=== PATIENT | female | born 1945 | race Two or more races ===

== ENCOUNTER 2017-01-26 15:57 | Inpatient (IN) | payer MEDICARE, OTHER ==
[~2017-01-26] VITALS: Ht 172.7 cm; Wt 84.3 kg
[2017-01-26 16:07] VITALS: BP 109/54; PULSE 66; RESP 16; O2SAT 96
--- NOTE | 2017-01-26 18:05 | ED.REPORT ---
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 Patient states that she bent over and heard a "pop" in her chest and have been experiencing progressively worse pain since. She is currently unable to ambulate secondary to pain. Associated symptoms also include SOB and chest pain. Patient currently takes Oxycodone Q4 for post-op pain. She denies any recent fever or chills. Nursing Notes Stated Complaint: PAIN/10 DAYS POST LUNG SURGERY Chief Complaint: Female Abdominal Pain Nursing Notes Reviewed: Yes Allergies: Coded Allergies: honey (Verified Allergy, Severe, Anaphylaxis, 01/26/17) TAPE (Verified Allergy, Intermediate, RASH, 01/26/17) ampicillin (Verified Allergy, Intermediate, RASH, 01/26/17) valacyclovir (Verified Allergy, Intermediate, RASH, 01/26/17) amitriptyline (Verified Adverse Reaction, Intermediate, OVERSEDATION, 01/26) Uncoded Allergies: BEE STING (Allergy, Severe, Anaphylaxis, 01/26/17) BEE STINGS (Allergy, Severe, 01/26/17) NEOPRENE (Allergy, Severe, 01/26/17) PEANUTS (Allergy, Severe, Anaphylaxis, 01/26/17) TREE NUTS (Allergy, Severe, ANAPHYLAXIS, 01/26/17) Scheduled Alendronate/Vitamin D3 (Alendronate/Vitamin D3) 1 Each Tablet 1 TAB PO WEEKLY SUNDAYS Docusate Sodium (Colace) 100 Mg Capsule 100 MG PO BID Famotidine (Famotidine) 20 Mg Tablet 20 MG PO BIDWM Metoprolol Tartrate (Metoprolol Tartrate) 25 Mg Tablet 12.5 MG PO TID Sennosides (Senna) 8.6 Mg Tablet 8.6 MG PO BID Scheduled PRN Acetaminophen (Acetaminophen) 500 Mg Tablet 500 MG PO Q3H PRN PRN For Pain Loperamide (Loperamide) 2 Mg Tablet 2 MG PO Q4H PRN PRN For Diarrhea or Loose Stool Ondansetron (Ondansetron) 4 Mg Tablet 4 MG PO Q8H PRN PRN For Nausea/Vomiting Oxycodone (Roxicodone) 5 Mg Tablet 5 MG PO Q3H PRN PRN For Pain General Time Seen by MD: 18:05 Chief Complaint Abdominal pain Hx Obtained From: Patient Arrived By: Walk-in Sudden in Onset?: No Onset Occurred: Yesterday Symptom Duration: Since onset Location: : Abdomen Quality: Painful Radiation: : Does not radiate Severity: Current: Moderate Severity: Maximum: Moderate Associated with: Reports: Abdominal pain Pertinent Negative: Pt denies other symptoms Recent Healthcare: Recent doctor visit, Recent hospitalization Past Medical History Past Medical History Right lung cancer s/p partial pneumectomy Past Surgical History Partial pneumectomy Denies: Cholecystectomy Review of Systems Full Review of Systems Constitutional: Denies: Chills, Fever Respiratory: Reports: Shortness of breath Cardiovascular: Reports: Chest pain GI: Reports: Abdominal pain (RUQ) Complete sys rev & neg: except as marked. Physical Exam Vital Signs Vital Signs Date Time Temp Pulse Resp B/P Pulse Ox O2 Delivery O2 Flow Rate FiO2 01/26/17 21:58 72 18 123/63 97 Room Air 01/26/17 20:15 62 20 131/75 96 Room Air 01/26/17 16:07 36.8 66 16 109/54 96 Room Air Initial VS: Reviewed Neck: Supple, Non-tender, Full range of motion Extremities: Vascular intact, Neuro intact, No swelling, No tenderness Skin: Warm, Dry, No cyanosis Neurologic: Alert, Oriented, Nonfocal Psychiatric: Mood/affect normal, Behavior normal, Normal thought content General/Constitutional: Awake, Alert, No acute distress, Well appearing, Not toxic appearing Head / Eyes: Atraumatic, Normocephalic, PERRL ENT: Atraumatic, Airway patent, Mucous membranes moist Respiratory / Chest: Atraumatic, Breath sounds NL, Breath sounds = bilat, No respiratory distress Cardiovascular: Heart rate NL, Regular rhythm, Heart sounds NL Abdomen: Atraumatic, Soft, No guarding, No rebound Tenderness/Guarding/Rebound: Positive: Tender RUQ... (Moderate) CHEST: Well-healing scars s/p partial pneumectomy. No signs of infection including no erythema, no warmth and no pustule drainage. Interpretation & Diagnostics Lab Results Interpretation Result Diagram: 01/26/17 1808 01/26/17 1808 Test 01/26/17 18:08 01/26/17 21:27 01/26/17 22:50 White Blood Count 6.7th/mm3 (3.8-10.1) Red Blood Count 3.91mil/mm3 (3.90-5.20) Hemoglobin 11.5g/dL (12.0-15.6) Hematocrit 35.7% (35.0-46.0) Mean Corpuscular Volume 91.3fL (81-100) Mean Corpuscular Hemoglobin 29.4pg (27.0-35.0) Mean Corpuscular Hemoglobin Concent 32.2% (32.0-37.0) Red Cell Distribution Width 13.1% (12.3-15.4) Platelet Count 345bil/L (150-400) Neutrophils (%) (Auto) 61.0% (40-74) Lymphocytes (%) (Auto) 27.6% (14-46) Monocytes (%) (Auto) 7.0% (4-12) Eosinophils (%) (Auto) 2.8% (0-5) Basophils (%) (Auto) 0.6% (0-3) Hold Purple Top Tube Received (Received) Prothrombin Time 9.7sec (8.1-12.5) Prothromb Time International Ratio 0.91ratio Hold Blue Top Tube Received (Received) Sodium Level 137mEq/L (134-144) Potassium Level 4.4mEq/L (3.5-5.2) Chloride Level 100mEq/L (97-108) Carbon Dioxide Level 25mmol/L (18-29) Blood Urea Nitrogen 13mg/dL (8-27) Creatinine 0.86mg/dL (0.57-1.00) Estimat Glomerular Filtration Rate 93mL/min (>59) Glucose Level 94mg/dL (60-99) Calcium Level 9.0mg/dL (8.5-10.1) Magnesium Level 2.2mg/dL (1.6-2.6) Total Bilirubin 0.2mg/dL (0.0-1.2) Aspartate Amino Transf (AST/SGOT) 13U/L (0-50) Alanine Aminotransferase (ALT/SGPT) 14U/L (0-32) Alkaline Phosphatase 78U/L (25-165) Total Protein 6.8g/dL (6.4-8.4) Albumin 3.7g/dL (3.4-5.0) Lipase 92U/L (13-60) Hold [place]field Top Tube Received (Received) Hold Botello Top Tube Received (Received) Urine Color Straw (YELLOW) Urine Appearance Clear (CLEAR,HAZY) Urine pH 5.0 (5.0-8.0) Urine Specific Green[place] 1.005 (1.003-1.035) Urine Protein Negativemg/dL (NEG,TRACE) Urine Glucose (UA) Negativemg/dL (NEGATIVE) Urine Ketones Negativemg/dL (NEGATIVE) Urine Occult Blood Negative (NEGATIVE) Urine Nitrite Negative (NEGATIVE) Urine Bilirubin Negative (NEGATIVE) Urine Urobilinogen Normalmg/dL (NORMAL) Urine Leukocyte Esterase Small (NEGATIVE) Urine RBC 0-2/hpf (0-2) Urine WBC 0-5/hpf (0-5) Urine Epithelial Cells Few/hpf (NONE-MOD) Urine Crystals None seen (NONE SEEN) Urine Bacteria Few/hpf (NONE-FEW) Urine Hyaline Casts None/lpf (NONE) Urine Granular Casts None seen (NONE SEEN) Urine Waxy Casts None seen (NONE SEEN) Urine Red Blood Cell Casts None seen (NONE SEEN) Urine White Blood Cell Casts None seen (NONE SEEN) Urine Mucus None seen (None Seen) Urine Trichomonas None seen (NONE SEEN) Urine Yeast None (NONE SEEN) Urinalysis Comment None Urine Culture Reflexed Indicated Lactic Acid Level 0.4mmol/L (0.4-2.0) Procalcitonin 0.06ng/mL (0.00-0.08) Pulse Oximetry Interpretation Pulse Oximetry Interpretation: Pulse Ox - 96% Pulse Oximetry: On room air ECG Interpretation ECG Interpretation: Sinus Rhythm Rate 61 bpm Left ventricular hypertrophy No prior for comparison Time: 18:48 Interpreted by: ED physician Rhythm Strip Interpretation : Time: 19:23 Rhythm Strip Interpretation: Interpreted by me, Rate (61), Normal sinus rhythm X-Ray Chest Interpretation Chest Xray Interpretation: IMPRESSION: 1. Left retrocardiac radiopacity suspicious for atelectasis, aspiration, or infection. 2. Tenting of the right hemidiaphragm which may be postoperative in nature. No prior comparisons are available to determine the acuity of this finding. 3. No acute intra-abdominal findings. Dictated by: Aury Jordan M.D. on 01/26/2017 at 18:59 Interpretation / Wet Read by: Interpret - Radiologist X-Ray Abdominal Interpretation IMPRESSION: 1. Left retrocardiac radiopacity suspicious for atelectasis, aspiration, or infection. 2. Tenting of the right hemidiaphragm which may be postoperative in nature. No prior comparisons are available to determine the acuity of this finding. 3. No acute intra-abdominal findings. Dictated by: Aury Jordan M.D. on 01/26/2017 at 18:59 Interpretation / Wet Read by: Interpret - Radiologist CT Chest Interpretation IMPRESSION: 1. No acute pulmonary embolus. 2. Loculated appearing, small low density right pleural effusion. 3. Focal left basilar consolidation suspicious for aspiration/infection. Short interval followup is recommended to ensure resolution of this finding and exclude underlying pulmonary pathology. Dictated by: Aury Jordan M.D. on 01/26/2017 at 21:58 Study type: CT pulm angiogram Interpretation / Wet Read by: Interpret - Radiologist CT Abd / Pelvis Interpretation IMPRESSION: 1. No acute intra-abdominal findings. Normal appendix. 2. Small low density right pleural effusion. 3. Focal left basilar consolidation. Differential considerations include atelectasis, aspiration, infection. Short interval followup is recommended to ensure resolution. Dictated by: Aury Jordan M.D. on 01/26/2017 at 22:02 Study type: Abdominal CT IV contrast, Abdom CT oral contrast Interpretation / Wet Read by: Interpret - Radiologist US Focused Biliary IMPRESSION: 1. Limited study. 2. Cholelithiasis and gallbladder wall which is the upper limits of normal. Of note, there is no pericholecystic fluid or sonographic Beltran's sign. These findings are equivocal for acute cholecystitis. Please correlate clinically. Dictated by: Aury Jordan M.D. on 01/26/2017 at 19:51 Exam Interpreted by: Radiologist Re-Eval/Medical Decision Time of Eval: 20:36 Patient Status: Condition improved Re-Evaluation/Progress Note: Pain has improved upon recheck. She is informed of her current results. Time of Eval: 23:40 Re-Evaluation/Progress Note: Pt is rechecked. All of her questions about the intended treatment plan are addressed. The patient understands and agrees with the plan to admit. Consultation #1: Referral / Consult Name: Loyda Gupta Consulted With: Hospitalist Call Returned at: 23:30 [employer] Boards Stripper Etcher: Will see patient, Agrees with eval, Agrees with plan, Accepts admit Consultation #2: Consulted With: Surgeon Call Returned at: 23:21 [employer] Stripper Etcher: Agrees with eval, Agrees with plan Note: Dr. Rock Linda - Discussed patient condition. Agrees with intended treament plan Counseled Regarding: Diagnosis, Lab results, Need for admission Discharge & Departure Primary Impression: Left lower lobe pneumonia Pneumonia type: due to unspecified organism Qualified Code: J18.1 - Lobar pneumonia, unspecified organism Additional Impressions: Cholelithiasis Pleural effusion Abdominal pain Disposition: Home Discharge Condition All VS Reviewed: Yes Condition: Stable Referrals: PAULA SAN (PCP) Scribe Attestation Portions of this note were transcribed by Jocelin Griffiths. I, Dr. Osborne, personally performed the history, physical exam and medical decision-making; I reviewed and confirmed the accuracy of the information in the transcribed note. Signed by: Jocelin Griffiths, 01/26/17. copies to: PAULA SAN Todd P DO Jan 26, 2017 18:05 JOCELIN GRIFFITHS Jan 26, 2017 18:16
[2017-01-26] MEDS ORDERED: 0.9% Sodium Chloride 1,000 ML IV ONE (18:21)
[2017-01-26] MEDS ORDERED: Ondansetron 2 mg/mL 2 mL Inj IVPUSH PRN (18:25)
[2017-01-26 18:31] LABS: BASOPHILS % (AUTO) 0.6 % (0-3); EOSINOPHILS % (AUTO) 2.8 % (0-5); Mean Corpuscular Hemoglobin 29.4 pg (27.0-35.0); Mean Corpuscular Volume 91.3 fL (81-100); Platelet Count 345 bil/L (150-400)
[2017-01-26 18:37] LABS: INR 0.91 ratio
[2017-01-26 18:42] LABS: Magnesium 2.2 mg/dL (1.6-2.6)
[2017-01-26] MEDS: HYDROmorphone 0.5 mg/0.5 mL iSecure Syringe IVPUSH PRN ×3 (18:46→21:47)
--- NOTE | 2017-01-26 19:04 | DRSVH ---
PROCEDURE: X-RAY ACUTE ABDOMINAL SERIES ([id number]) INDICATIONS: abdominal and chest pain TECHNIQUE: One view chest and two views of the abdomen were acquired. COMPARISON: None. FINDINGS: Surgical changes and devices: None. Chest: There is a focal retrocardiac radiopacity at the left lung base. There is tenting of the right hemidiaphragm which may be secondary to volume loss from recent lobectomy (per history). Abdomen: Bowel gas pattern is normal. No suspicious calcifications. Visualized solid organ contour s appear normal. Bones: No suspicious bony lesions. IMPRESSION: 1. Left retrocardiac radiopacity suspicious for atelectasis, aspiration, or infection. 2. Tenting of the right hemidiaphragm which may be postoperative in nature. No prior comparisons are available to determine the acuity of this finding. 3. No acute intra-abdominal findings. Dictated by: Aury Jordan M.D. on 01/26/2017 at 18:59 Approved by: Aury Jordan M.D. on 01/26/2017 at 19:03
--- NOTE | 2017-01-26 19:54 | DRSVH ---
PROCEDURE: US ABDOMEN, LIMITED ([id number]) INDICATIONS: ruq pain TECHNIQUE: Real-time focused scanning was performed of the abdomen, with image documentation. COMPARISON: None. FINDINGS: Liver measures 13 cm in length and demonstrates increased echotexture. The gallbladder wall measures up to 3.6 mm in diameter. No pericholecystic fluid. Sludge and stones are present centrally . No sonographic Beltran's sign. The common bile duct measures 4.8 mm in diameter. It no intrahepatic biliary ductal dilatation. The p ancreas is nonvisualized. IMPRESSION: 1. Limited study. 2. Cholelithiasis and gallbladder wall which is the upper limits of normal. Of note, there is no jazmyn cholecystic fluid or sonographic Beltran's sign. These findings are equivocal for acute cholecystitis. Please correlate clinically. Dictated by: Aury Jordan M.D. on 01/26/2017 at 19:51 Approved by: Aury Jordan M.D. on 01/26/2017 at 19:53
[2017-01-26 20:15] VITALS: BP 131/75; PULSE 62; RESP 20; O2SAT 96
[2017-01-26 21:48] LABS: APPEARANCE,URINE CLEAR (CLEAR,HAZY); COLOR,URINE STRAW (YELLOW); OCCULT BLOOD,URINE NEGATIVE (NEGATIVE); UROBILINOGEN,URINE NORMAL (NORMAL)
[2017-01-26 21:58] VITALS: BP 123/63; PULSE 72; RESP 18; O2SAT 97
--- NOTE | 2017-01-26 22:04 | DRSVH ---
PROCEDURE: CT ANGIO CHEST PULMONARY EMBOLISM ([id number]) INDICATIONS: severe post op chest and abdominal pain TECHNIQUE: After the administration of intravenous contrast, 2 mm thick sections acquired from the pulmonary api jr to the posterior costophrenic angles. 3-dimensional maximum intensity projection (MIP) coronal a nd sagittal reformats were then acquired through the thorax. For radiation dose reduction, the follo wing was used: automated exposure control, adjustment of mA and/or kV according to patient size. COMPARISON: None. FINDINGS: Image quality: Excellent. Pulmonary arteries: Pulmonary arteries are normal in size, and demonstrate no intraluminal filling d efects to suggest central pulmonary embolism. Lungs and pleura: There is a small, low-density, loculated appearing right pleural effusion. Focal co nsolidation is present at the medial left lung base. Atelectasis is present at the right lung base. Mediastinum: Heart size is enlarged, without pericardial effusion. No mediastinal or hilar adenopat hy. Thoracic aorta is normal in caliber and enhancement. Esophagus is normal in caliber, without hi atal hernia. Bones and chest wall: No suspicious bony lesions. Ribs and thoracic spine appear intact throughout. A low density nodule and a punctate calcification are present within the right thyroid lobe. The lef t thyroid lobe is unremarkable. No axillary or supraclavicular adenopathy. Abdomen: Visualized upper abdominal solid organs appear normal in the early arterial phase of enhanc ement. IMPRESSION: 1. No acute pulmonary embolus. 2. Loculated appearing, small low density right pleural effusion. 3. Focal left basilar consolidation suspicious for aspiration/infection. Short interval followup is r ecommended to ensure resolution of this finding and exclude underlying pulmonary pathology. Dictated by: Aury Jordan M.D. on 01/26/2017 at 21:58 Approved by: Aury Jordan M.D. on 01/26/2017 at 22:02
--- NOTE | 2017-01-26 22:08 | DRSVH ---
PROCEDURE: CT ABDOMEN AND PELVIS WITH CONTRAST ([id number]) INDICATIONS: severe post op chest and abdominal pain TECHNIQUE: After the administration of intravenous contrast, 5 mm thick sections acquired from the diaphragm to the symphysis. 5 mm coronal and sagittal reformats were acquired. For radiation dose reduction, the following was used: automated exposure control, adjustment of mA and/or kV according to patient siz e. COMPARISON: None. FINDINGS: Image quality: Excellent. ABDOMEN: Lung bases: There is a low density right pleural effusion. Focal consolidation is present at the left lung base. Solid organs: Liver and spleen are normal in size and enhancement. Multiple punctate gallstones are present within the gallbladder fundus. No gallbladder wall thickening or pericholecystic fluid. Bilia ry system is non dilated. Pancreas enhances normally. No adrenal nodules. Kidneys demonstrate norm al size and enhancement, without hydronephrosis. Peritoneum and bowel: Bowel loops demonstrate normal wall thickness and caliber. The appendix is th in walled. No free fluid or air. Nodes and vessels: No retroperitoneal or mesenteric adenopathy by size criteria. Aorta and inferior vena cava are normal in size. There are scattered atheromatous calcifications throughout the aorta and iliac arteries bilaterally. Miscellaneous: No ventral hernias. PELVIS: Genitourinary: Bladder wall thickness is normal. Miscellaneous: No inguinal adenopathy. There is a small right fat containing inguinal hernia. Bones: No suspicious bony lesions. No vertebral body compression fractures. IMPRESSION: 1. No acute intra-abdominal findings. Normal appendix. 2. Small low density right pleural effusion. 3. Focal left basilar consolidation. Differential considerations include atelectasis, aspiration, inf ection. Short interval followup is recommended to ensure resolution. Dictated by: Aury Jordan M.D. on 01/26/2017 at 22:02 Approved by: Aury Jordan M.D. on 01/26/2017 at 22:06
[2017-01-26] MEDS ORDERED: Cefepime Inj 2,000 MG in Dextrose 5% Minibag Plus 100 ML IV ONE (22:20)
[2017-01-26] MEDS ORDERED: FAMO20TA4 PO (23:04)
[2017-01-26] MEDS ORDERED: METO25TA6 PO (23:04)
[2017-01-26] MEDS ORDERED: ONDA-53 PO (23:04)
[2017-01-26] MEDS ORDERED: ALEN70TA46 PO (23:04)
[2017-01-26] MEDS ORDERED: OXYC-474 PO (23:04)
[2017-01-26] MEDS ORDERED: ACET-171 PO (23:05)
[2017-01-26] MEDS ORDERED: LOPE2TAB32 PO (23:05)
[2017-01-26] MEDS ORDERED: SENN-133 PO (23:05)
[2017-01-26] MEDS ORDERED: DOCU-41 PO (23:05)
[2017-01-26] MEDS ORDERED: Alum-Mag Hydrox-Simeth 30 mL Suspension PO PRN (23:50)
[2017-01-26] MEDS ORDERED: Polyethylene Glycol (PEG) 17 Gm Powder PO PRN (23:50)
[2017-01-26 23:57] VITALS: BP 125/54; PULSE 76; RESP 18; O2SAT 97
[2017-01-27] VITALS (14 sets, daily range): BP systolic 92–132; BP diastolic 58–82; PULSE 16–121; RESP 16–22; O2SAT 88–96
[2017-01-27] MEDS ORDERED: HYDROmorphone 0.5 mg/0.5 mL iSecure Syringe IVPUSH ONE
[2017-01-27] MEDS ORDERED: Albuterol 2.5 mg/3 mL Inhalation Solution NEB ONE (01:05)
--- NOTE | 2017-01-27 01:40 | PCM.HPMED ---
Subjective Date of Service Jan 27, 2017 Primary Provider: Admitting Physician: Loyda Gupta DO Primary Care Physician: [facility] Attending Physician: Loyda Gupta DO Admit Status: From the Emergency Department, Remote Telemetry Chief Complaint: Right-sided chest pain History of Present Illness: Ms. Woodard is a pleasant 71-year-old female with a history of lung adenocarcinoma status post right partial pneumonectomy completed at [facility] on 01/16/2017, who presented to [facility] with a 2 day history of acute onset right-sided chest pain with associated shortness of breath and inability to ambulate secondary to pain. She was admitted for evaluation and treatment of suspected healthcare associated pneumonia in the setting of recent hospitalization and pulmonary interventions. - Hospital day one Ms. Woodard is a resident of [place], here in [place] visiting her daughter and to complete her adenocarcinoma treatment plan. She states that her initial workup for lung adenocarcinoma was completed in [place], and due to the involvement of the procedure, she requested that her continued care completed through [facility] in [place], in order to be closer to her family. She states that the procedure went rather well, her surgeon being Dr. Rock Linda of [facility]. Her next follow-up was scheduled to be 2016. She states that since the procedure 01/16/2017, she had been doing very well until 2 days prior to this admission. She had been able to ambulate great distances, until 2 days ago, when her distance significantly decreased to approximately a rooms length. She denies any associated fever, chills, nausea, vomiting; admits to associated shortness of breath with the severe pain, which is located on her right chest wall, with a sensation deep to her incisions. She denies any dysphasia, poor appetite, or acute vision changes. The right- sided pain waxes and wanes without any identifiable triggers, is not associated with movement or position, moderately relieved with home pain medications. Patient reports that the prescribed oxycodone was not alleviating the pain over the recent 24-36 hours. She also notes that she has been utilizing her albuterol more frequently over the recent 2 days, with use increasing to greater than 4 times a day, which is unusual for her. In the ED, T 36.6, pulse 76, respiratory rate 18, blood pressure 125 or 54, 97% room air; initial labs revealed WBC 6.7 with 61% neutrophils, hemoglobin 11.5, hematocrit 35.7, platelets 345; sodium 137, potassium 4.4, creatinine 0.86, lactic acid 0.8 with repeat 0.4, pro calcitonin 0.06, lipase 92, LFTs within range, albumin 3.7; UA revealed negative nitrite, small leukocyte esterase, few bacteria; blood cultures and urine cultures were obtained; initial imaging included x-ray acute abdominal series which revealed left retrocardiac radiopacity suspicious for atelectasis, aspiration, or infection, with tenting of the right hemidiaphragm which was thought to be post operative change, no other acute intra-abdominal findings were noted; abdominal ultrasound was noted to be limited in study with cholelithiasis and gallbladder wall was found to be upper limits of normal without any pericholecystic fluid or sonographic Beltran sign; CTA completed did not reveal any acute pulmonary emboli, there was a loculated appearing small low-density right pleural effusion with focal left basilar consolidation suspicious for aspiration or infection; CT of the abdomen and pelvis with contrast did not reveal any acute intra-abdominal findings with a normal appendix, small low-density right pleural effusion was again noted, in addition to focal left basilar consolidation. Initial therapies included 1 L normal saline, cefepime 2 g, hydromorphone 0.5 mg IV push as needed for pain. Review of Systems: Complete review of systems obtained, pertinent positives and negatives as noted in history of present illness Allergies Coded Allergies: honey (Verified Allergy, Severe, Anaphylaxis, 01/26/17) TAPE (Verified Allergy, Intermediate, RASH, 01/26/17) ampicillin (Verified Allergy, Intermediate, RASH, 01/26/17) valacyclovir (Verified Allergy, Intermediate, RASH, 01/26/17) amitriptyline (Verified Adverse Reaction, Intermediate, OVERSEDATION, 01/26) Uncoded Allergies: BEE STING (Allergy, Severe, Anaphylaxis, 01/26/17) BEE STINGS (Allergy, Severe, 01/26/17) NEOPRENE (Allergy, Severe, 01/26/17) PEANUTS (Allergy, Severe, Anaphylaxis, 01/26/17) TREE NUTS (Allergy, Severe, ANAPHYLAXIS, 01/26/17) Home Medications Obtained from patient documentation, will need to be verified: Calcium 1500 mg daily Magnesium 100 mg daily Biotin 10,000 g daily Vitamin D 5000 international units daily Multivitamin daily Iron 50 mg every other day opposite vitamin K Vitamin K 100 g every other day off of iron X line alendronate 70 mg tabs weekly Albuterol as needed Docusate 1 tab twice daily Famotidine twice daily Sennosides twice daily Metoprolol 12.5 mg thrice daily Oxycodone 5 mg 2 tabs every 4-6 hours as needed for pain PMH Lung cancer status post right partial pneumonectomy of upper lobe Paroxysmal atrial fibrillation noted postoperatively Livedoid vasculopathy Patient reports childhood diseases including [place] measles, mumps 3, rubella, rheumatic fever, scarlet fever, polio, chickenpox Patient also reports carpal monoxide poisoning, venous stasis ulcer of left anterior ankle, vertigo Patient denies any other health conditions Surgical History Right-sided partial pneumonectomy of right upper lobe Tubal ligation First left rib resection secondary to thoracic outlet syndrome Double pneumonia Vaginal hysterectomy with bladder resection secondary to endometriosis Compression fracture of T6 Family History Half brother with lung cancer, thought to be secondary to agent orange exposure during the [place] War Patient denies any other family history of cancer Social History Hx Alcohol Use: Yes (quit alcohol intake 1995) Hx Substance Use: No Hx Tobacco Use: Yes Smoking Status: Former Smoker (from 1957 until 2010) Living Arrangement: with Family (visiting daughter) Additional Information Patient home: [facility] Exam Vital Signs Vital Sign - Last Date Time Temp Pulse Resp B/P Pulse Ox O2 Delivery O2 Flow Rate FiO2 01/26/17 23:57 36.6 76 18 125/54 97 Room Air Intake and Output 01/26/17 01/26/17 01/27/17 Cumulative From/Thru 15:00 23:00 07:00 01/26/17 16:07 - 01/26/17 18:46 Intake Total 999 ml 999 ml Balance 999 ml 999 ml Intake IV Total 999 ml 999 ml Exam General: Alert and oriented 3, well-nourished woman resting supine in bed in no acute distress HEENT: Atraumatic, normocephalic, mucous membranes moist, sclerae anicteric Neck: Full range of motion without any pain Chest: Multiple port sites noted that are well approximated without any discharge, active bleeding, or exudate Cardiac: Regular rate and rhythm at time of examination with soft 1/6 systolic murmur Respiratory: Adequate airflow of bilateral bases and mid sullivan, with faint coarse sounds appreciated left lower lobe Abdomen: Soft, nondistended, nontender Extremities: No edema appreciated MSK: 5 out of 5 strength all 4 extremities at major joints of hip and shoulder Skin: Erythematous lesion noted of left medial malleolus region without active bleeding or exudate; chronic venous stasis changes noted bilateral lower extremities Neuro: Cranial nerves II through XII grossly intact, facial expressions equal and symmetric, speech without slur Psych: Appropriate mood, affect, and responses to questioning; good insight and judgment Lab and Diagnostics Result Diagram: 01/26/17180701/26/171807 Assessment & Plan Ms. Woodard is a pleasant 71-year-old female with a history of lung adenocarcinoma status post right partial pneumonectomy completed at [facility] on 01/16/2017, who presented to [facility] with a 2 day history of acute onset right-sided chest pain with associated shortness of breath and inability to ambulate secondary to pain. She was admitted for evaluation and treatment of suspected healthcare associated pneumonia in the setting of recent hospitalization and pulmonary interventions. - Hospital day one Suspected pneumonia, acute, present on admission, under evaluation - On admit: WBC 6.7; afebrile, PCT 0.06 - Initial imaging of CT, CXR described findings of left retrocardiac radiopacity , focal left basilar consolidation, loculated right pleural effusion - ED antibiotics: Cefepime 2 g - Patient reports allergy to penicillin, but has taken and tolerated cephalosporins in the past - Blood cultures obtained in ED - Repeat PCT in am; add resp viral PCR, strep pneu Ur, Legionella Ur, MRSA swab - Continue to monitor; consideration of healthcare pneumonia secondary to recent hospitalization for pneumonectomy - Incentive spirometer ordered - We will continue with healthcare associated pneumonia with low risk MDR antibiotic regimen at this time: Ertapenem 1 g IV every 24 - Change antibiotics as results from pending laboratory results yield - CXR in am Right-sided chest pain, acute, present on admission, under evaluation - Admit CT abdomen and pelvis with contrast: No acute intra-abdominal findings or etiology of abdominal pain - CTA on admission: No acute pulmonary emboli, but did reveal loculated appearing low-density right pleural effusion - Pain may also be secondary to postoperative healing; time of admission, port sites appeared healing without any sign of active infection - Dilaudid 1 mg IV as needed for pain; convert to effective oral dosing when pain is controlled - Physical therapy evaluation Lung cancer status post right partial pneumonectomy, present on admission, now considered to be chronic, presumed stable - Per reports, pneumonectomy completed at [place] on 01/16/2017 - ED kindly contacted Dr. Rock Linda - Incentive spirometer - Albuterol scheduled 4 times a day while awake at patient's request Paroxysmal atrial fibrillation, chronic, not present on admission, monitor - Patient reports brief instance of atrial fibrillation postoperatively which she reports has resolved - Home medication metoprolol 12.5 mg thrice daily - We will continue beta blockade at this time - Telemetry Livedoid vasculopathy, chronic, presumably managed - Patient states symptoms well-controlled with application of Vaseline or Aquaphor - Okay for patient to apply liberally as needed PRN: Fever, bowel, antiemetic, pain GI: H2B Diet: General DVT: Hepq8 CODE STATUS: Full code Patient status: Due to severity of presenting symptoms, risk of adverse events, and likely course of care, anticipated length of stay exceeds two midnights, patient admitted as inpatient status Pain Evaluation: Adequate Pain Control GI Prophylaxis: H2 hayes VTE Prophylaxis: Sub-Q Heparin (Unfractionated) Resuscitation Status: CPR: Attempt Resuscitation Attending Statement The patient was seen and examined together with house staff on 01/27/2017 and I agree with the history, exam and plan as outlined in the note above. Olimpia Calderon DO Jan 27, 2017 00:07 Loyda Gupta DO Jan 27, 2017 05:48
[2017-01-27] MEDS: Ondansetron 2 mg/mL 2 mL Inj IVPUSH PRN ×3 (01:41→20:02)
[2017-01-27] MEDS: HYDROmorphone 1 mg/mL Inj IVPUSH PRN ×5 (03:28→20:03)
--- NOTE | 2017-01-27 04:48 | NUR ---
NOC Admit Pt arrived on the floor. Alert and oriented. Complains of right lateral rib pain. Dilaudid 1mg PRN and supported with K-pad for pain control. Denies chest pain or sob. Reports of feeling nauseated upon having jelo. Zofran administered PRN. No complains after. Pt's VSS and has been afebrile overnight.
[2017-01-27 05:38] LABS: BASOPHILS % (AUTO) 0.4 % (0-3); EOSINOPHILS % (AUTO) 2.2 % (0-5); MONOCYTES % (AUTO) 6.5 % (4-12); Mean Corpuscular Hemoglobin 29.2 pg (27.0-35.0); NEUTROPHILS % (AUTO) 72.3 % (40-74); Platelet Count 314 bil/L (150-400)
[2017-01-27] MEDS: Ertapenem Inj 1,000 MG in 0.9% Sodium Chloride 50 ML IV SCH (08:32)
[2017-01-27] MEDS: Heparin 5,000 Unit/mL Inj SUBQ SCH ×2 (08:38→16:54)
--- NOTE | 2017-01-27 10:39 | NUR ---
Telemetry: Notified by court monitor of patients HR increased to 110s then increased to 130s and has converted to A Fib/Flutter. Scheduled am Metoprolol administered. notified. HR decreasing to 110s, continues to be AFib. Addendum: 01/27/17 at 1042 by CINDY MELLO RN Patient denied chest pain/pressure, palpitations, SOB, lightheadedness and dizziness. Addendum: 01/27/17 at 1252 by CINDY MELLO RN Notified by court monitor that patient converted back to SR 70s @ 1242.
[2017-01-27] MEDS: Albuterol 2.5 mg/3 mL Inhalation Solution NEB SCH ×3 (11:18→19:53)
--- NOTE | 2017-01-27 11:49 | NUR ---
Evaluation completed. Please go to "Notes" then click on "Assessments and Notes" (bottom left corner of screen). Then select appropriate discipline tab on top of screen.
--- NOTE | 2017-01-27 14:44 | DRSVH ---
PROCEDURE: X-RAY CHEST ONE VIEW, PORTABLE ([id number]) INDICATIONS: SOB TECHNIQUE: One view of the chest was acquired. COMPARISON: [facility], CT, CT ANGIO CHEST PE, 01/26/2017, 21:31. FINDINGS: Surgical changes and devices: None. Lungs and pleura: Right subpulmonic pleural effusion redemonstrated and persistent bibasilar airspace opacities, left greater than right. Mediastinum: Mediastinal contours appear normal. Heart size is normal. Bones and chest wall: No suspicious bony lesions. Overlying soft tissues appear unremarkable. IMPRESSION: 1. Possible loculated right pleural effusion redemonstrated and persistent basilar airspace opacities consistent with atelectasis versus aspiration or pneumonia. Continued radiographic surveillance to r esolution is recommended. Dictated by: Rg SCHMITT Interpreted: Lan Bo MD on 01/27/2017 at 10:53 Approved by: Lan Bo M.D. on 01/27/2017 at 14:42
--- NOTE | 2017-01-27 16:23 | NUR ---
Social Work-initial assessment/ multidisciplinary rounds: Data:See initial assessment. Pt is a 71 y/o female who was admitted on 01/26/17 for pneumonia per H&P. Pt's insurance is [employer] and [employer] [place] of [place] and PCP is Dr. Murray. EMR Reviewed. SW met with pt at bedside, SW role explained. Pt is alert and oriented x3. Pt resides at home alone in [place], but has been residing locally with her daughter in [facility]. Pt normally drives and does not use any DME. Pt states she is currently open with HH services and has no SNF history. Pt has no alf care insurance or VA benefits. Pt has not completed DPOA/ advanced directive, SW provided pt with paperwork. Pt discussed in morning rounds, no concerns around pt's capacity for self care, Pt has cleared pt for home no needs. Pt to remain at pt's daughter home post hospitalization. SW provided pt with discharge planning checklist and encouraged pt to call with any questions,phone number provided. Pt's daughter to provide transport home. SW will continue to follow. Assessment:pt who is independent at baseline. Plan:Pt to discharge home when medically stable via POV. SW will continue to follow. JOSE Arana Addendum: 01/27/17 at 1632 by MILES CARTER Amended: Links added.
--- NOTE | 2017-01-27 17:51 | NUR ---
Nausea: Patient vomited small amount of undigested food after dinner. Had previously medicated patient with Zofran approx one half hour prior to meal. After vomiting, patient states that she feels "better". Will follow.
[2017-01-27] MEDS ORDERED: diphenhydrAMINE 25 mg Capsule PO ONE (21:50)
[2017-01-28] VITALS (8 sets, daily range): BP systolic 102–114; BP diastolic 57–67; PULSE 62–91; RESP 18–22; O2SAT 91–95
[2017-01-28] MEDS: Heparin 5,000 Unit/mL Inj SUBQ SCH ×3 (00:23→16:37)
[2017-01-28] MEDS: Ondansetron 2 mg/mL 2 mL Inj IVPUSH PRN (00:24)
--- NOTE | 2017-01-28 05:16 | NUR ---
NOC activity Pt is alert and oriented. Still having sharp right sided pain. Instruct splinting around the area. PRN oxycodone and dilaudid administered. Denies chest pain. Reports of SOB due to pain. Breathing tx administered by RT PRN. Pt has no further complains. Telemetry monitoring has been running sinus rhythm throughout the night. VSS and afebrile. Continuing care.
[2017-01-28] MEDS: Albuterol 2.5 mg/3 mL Inhalation Solution NEB SCH ×3 (07:14→16:47)
[2017-01-28] MEDS: Ertapenem Inj 1,000 MG in 0.9% Sodium Chloride 50 ML IV SCH (08:13)
--- NOTE | 2017-01-28 10:52 | PCM.CONSUR ---
Subjective History of Present Illness Julissa Woodard is a 71 [id number] with a past medical history of lung adenocarcinoma who is POD 12 from a left upper lobectomy performed by Dr. Rock Linda at [place] in [place] who presented to the [facility] ED with complaint of severe RUQ abdominal pain x2 days. Patient states that she was discharged from [place] after a 4-day hospital stay and her pain was significantly improved after chest tube removal on the day of her discharge. She denies any chest pain , incision pain or shortness breath in the days after discharge. On 01/26/2017 patient states that she was ambulating when she had a sudden onset of RUQ abdominal pain that she describes as a "popping" sensation. She reported associated nausea and a few episodes of vomiting. The pain has since been constant at a severity of 7/10 and is exacerbated with movement, cough and deep breaths. She denies any radiation of the pain but does note tenderness surrounding her incision sites. She denies any fever, chills, chest pain, shortness or breath or cough at this time. Reason for Consultation RUQ abdominal pain, concern for acute cholecystitis Allergy Allergies: Coded Allergies: honey (Verified Allergy, Severe, Anaphylaxis, 01/26/17) TAPE (Verified Allergy, Intermediate, RASH, 01/26/17) ampicillin (Verified Allergy, Intermediate, RASH, 01/26/17) valacyclovir (Verified Allergy, Intermediate, RASH, 01/26/17) amitriptyline (Verified Adverse Reaction, Intermediate, OVERSEDATION, 01/26) Uncoded Allergies: BEE STING (Allergy, Severe, Anaphylaxis, 01/26/17) BEE STINGS (Allergy, Severe, 01/26/17) NEOPRENE (Allergy, Severe, 01/26/17) PEANUTS (Allergy, Severe, Anaphylaxis, 01/26/17) TREE NUTS (Allergy, Severe, ANAPHYLAXIS, 01/26/17) Medications Acetaminophen (Acetaminophen) 500 Mg Tablet 500 MG PO Q3H PRN PRN For Pain ( Reported) Last Taken: 500 MG on 01/26/17 1400 Alendronate/Vitamin D3 (Alendronate/ Vitamin D3) 1 Each Tablet 1 TAB PO WEEKLY (Reported) SUNDAYS Last Taken: 1 TABLET on 01/26/17 0700 Docusate Sodium (Colace) 100 Mg Capsule 100 MG PO BID (Reported) Last Taken: 100 MG on 01/26/17599 Famotidine (Famotidine) 20 Mg Tablet 20 MG PO BIDWM (Reported) Last Taken: 20 MG on 01/26/17599 Loperamide (Loperamide) 2 Mg Tablet 2 MG PO Q4H PRN PRN For Diarrhea or Loose Stool (Reported) Last Taken: 2 MG on Unknown Date & Time Metoprolol Tartrate (Metoprolol Tartrate) 25 Mg Tablet 12.5 MG PO TID (Reported) Last Taken: 12.5 MG on 01/26/17 0600 Ondansetron (Ondansetron) 4 Mg Tablet 4 MG PO Q8H PRN PRN For Nausea/Vomiting (Reported) Last Taken: 4 MG on Unknown Date & Time Oxycodone (Roxicodone) 5 Mg Tablet 5 MG PO Q3H PRN PRN For Pain (Reported) Last Taken: 5 MG on 01/26/17 1400 Sennosides (Senna) 8.6 Mg Tablet 8.6 MG PO BID (Reported) Last Taken: 8.6 MG on 01/26/17 0600 Past Surgical History Surgeries: Yes (Partial Right Upper partial Lobectomy 01/16 ) Patient/Family Past Surgical: Denies:: Anesthesia Reactions Social History Hx Alcohol Use: Yes (quit alcohol intake 1995) Hx Substance Use: No Hx Tobacco Use: Yes PMH Cardiovascular History Cardiovascular History: Positive for:: Irregular Heartbeat (A-fib post op,) Denies:: Congestive Heart Failure Hypertension Respiratory Respiratory History: Denies:: Pulmonary Embolism Neurological History Neurological History: Positive for:: Dizziness (side effect of biopsy per pt ) Denies:: CVA Dementia Headaches Parkinson's Disease Seizures Gastrointestinal History Other GI Pertinent History: Celiac Dse, Lactose intolerance Musculoskeletal History Hx Musculoskeletal Problems?: Yes Musculoskeletal History: Positive for:: Back Injury Joint Replacement Musculoskeletal Trauma (S/P ) Psycho Social History Hx of Psycho/Social Problems?: Yes Psycho Social History: Denies:: Anxiety Bipolar Disorder Hx Depression Other History Other History: Positive for:: Cancer (Lung CA S/P Partial Lobectomy ) Hospitalization (Partial Right Upper partial Lobectomy 01/16 ) Denies:: Thyroid Disease Diabetes: No Social History Hx Alcohol Use: Yes (quit alcohol intake 1995)Hx Substance Use: NoHx Tobacco Use: Yes Smoking Status: Former Smoker (from 1958 until 2010) Living Arrangement: with Family (visiting daughter) Objective Exam Vital Signs & I/O Vital Sign- Last 8 Hours Date Time Temp Pulse Resp B/P Pulse Ox O2 Delivery O2 Flow Rate FiO2 01/28/17 10:33 74 01/28/17 10:02 37.1 62 20 106/60 93 Room Air 01/28/17 07:15 65 22 93 01/28/17 05:09 36.4 91 18 112/67 91 Room Air Intake and Output- Last 8 Hour 01/28/17 Cumulative From/Thru 07:00 01/26/17 16:07 - 01/28/17 06:09 Intake Total 400 ml 3422 ml Output Total 1200 ml 2850 ml Balance -800 ml 572 ml Intake Oral 400 ml 2265 ml IV Total 1157 ml Output Urine Total 1200 ml 2850 ml # Voids 1 # Bowel Movements 0 0 Lab & Micro Results Microbiology 01/26/17 Blood Culture - Preliminary, Resulted NO GROWTH AFTER 24 HOURS 01/27/17 Adenovirus DNA (PCR) - Final, Complete Not Detected 01/27/17 Coronavirus 229E PCR - Final, Complete Not Detected 01/27/17 Coronavirus HKU1 PCR - Final, Complete Not Detected 01/27/17 Coronavirus NL63 PCR - Final, Complete Not Detected 01/27/17 Coronavirus OC43 PCR - Final, Complete Not Detected 01/27/17 Influenza Type A (PCR) - Final, Complete Not Detected 01/27/17 Influenza Type B (PCR) - Final, Complete Not Detected 01/27/17 Human Metapneumovirus (PCR) (JAVON) - Final, Complete Not Detected 01/27/17 Rhinovirus (PCR)(JAVON) - Final, Complete Not Detected 01/27/17 Parainfluenza Virus Type 1 (PCR) - Final, Complete Not Detected 01/27/17 Parainfluenza Virus Type 2 (PCR) - Final, Complete Not Detected 01/27/17 Parainfluenza Virus Type 3 (PCR) - Final, Complete Not Detected 01/27/17 Parainfluenza Virus Type 4 (NAAT) - Final, Complete Not Detected 01/27/17 Respiratory Syncytial Virus (PCR)IN - Final, Complete Not Detected 01/27/17 Chlamydia pneumoniae (PCR) - Final, Complete Not Detected 01/27/17 Mycoplasma pneumoniae DNA Detection - Final, Complete 01/27/17 Streptococcus pneumoniae Ag Screen - Final, Complete Result Diagram: 01/27/17 0505 01/27/17 0505 Review of Systems: Constitutional: Negative, except as otherwise mentioned in the history above. Ophthalmologic: Negative, except as otherwise mentioned in the history above. Cardiovascular: Negative, except as otherwise mentioned in the history above. Respiratory: Negative, except as otherwise mentioned in the history above. Gastrointestinal: Negative, except as otherwise mentioned in the history above. Genitourinary: Negative, except as otherwise mentioned in the history above. Musculoskeletal: Negative, except as otherwise mentioned in the history above. Neurological: Negative, except as otherwise mentioned in the history above. Psychiatric: Negative, except as otherwise mentioned in the history above. Hematologic/Lymphatic: Negative, except as otherwise mentioned in the history above. Allergic/Immunologic: Negative, except as otherwise mentioned in the history above. H&P Surgical Exam Exam General: Alert, Oriented X3, Cooperative, No Acute Distress HEENT: Within normal limits & unremarkable Neck: Within normal limits & unremarkable Respiratory: Clear to Auscultation Cardiac: Regular Rate/Rhythm, No Murmurs/Rubs/Gallops Abdomen: Normal bowel sounds, Soft, Other (three small well-healed incisions to thorax with sutures in place from recent right upper lobectomy, severe tenderenss to light palpation of incisions, warmth surrounding incision sites with minimal erythema, moderate RUQ abdominal tenderness to palpation, + Beltran' s sign, moderate epigastric tenderness to palpation) Breasts: Not Indicated Pelvic: Not Indicated Assessment & Plan Assessment Right sided abdominal pain Problems: (1) Abdominal pain Qualifiers: Abdominal location: right upper quadrant Qualified Code: R10.11 - Right upper quadrant pain Status: Acute ICD Code: R10.9 VTE Prophylaxis: Sub-Q Heparin (Unfractionated) Plan: - Upon examination, the patient exhibits tenderness to light touch at her incision sites with associated warmth and slight erythema. Her pain is likely secondary to a post-op wound infection, given her recent right upper lobectomy on 01/16/2017. - Given a normal white count and no significant exam findings consistent with acute cholecystitis, laparoscopic cholecystectomy is not advised at this time. - Patient had a scheduled appointment to follow up with her cardiothoracic surgeon today at 10am. She is advised to call her surgeon and update him on her pain and establish follow up. - Patient can resume normal diet at this time. Resuscitation Status: CPR: Attempt Resuscitation Attending Statement: If there is a lingering question about cholecystitis, one could obtain a HIDA. Please call with questions Avril Hawkins DO Jan 28, 2017 10:52 Bailey Davidson MD Jan 30, 2017 12:27
[2017-01-28] MEDS ORDERED: oxyCODONE-Acetamin 5-325 mg Tablet PO PRN ×2 (12:10→12:14)
[2017-01-28] MEDS ORDERED: HYDROmorphone 1 mg/mL Inj IVPUSH PRN (13:05)
--- NOTE | 2017-01-28 14:02 | NUR ---
A-fib per teletype adjuster pt may have converted to A-fib. pt is resting in bed currently and is asymptomatic. paged
--- NOTE | 2017-01-28 14:36 | NUR ---
Social Work-readiness for discharge: Data:EMR reviewed. Pt is on day 2 of hospitalization for L pneumonia per H&P. Pt is not medically stable anticipate 1-2 more days. SW followed up with pt and she has all the paperwork for [facility]. order received for resume HH. SW called [facility] back and informed them of pt being open on service. [facility] confirms they have pt for Rn and PT services. [facility] will just need resume HH orders faxed at discharge. PT has cleared pt for home. Pt's daughter to provide transport home. SW will continue to follow. Assessment:Pt who is open with [facility]. Plan:Pt to discharge home with daughter when medically stable via POV. Pt will need resume HH orders at discharge with [facility] for RN and PT. ALEX will continue to follow. JOSE Arana
--- NOTE | 2017-01-28 16:51 | PCM.DC.MED ---
Discharge Summary Date of Service Jan 28, 2017 Dates of Hospitalization Date of Hospital Admission Jan 26, 2017 at 23:56 Date of Discharge: Jan 28, 2017 Providers: Admitting Physician: Loyda Gupta DO [facility] Attending Physician: Gi Guo DO Diagnosis at Time of Discharge Diagnosis at Time of Discharge Possible hospital-acquired pneumonia versus postop infection/fluid collection Lung cancer status post right partial pneumonectomy Paroxysmal atrial fibrillation Livedoid vasculopathy Procedures XRay, CTs & MRIs PROCEDURE: X-RAY CHEST ONE VIEW, PORTABLE INDICATIONS: SOB FINDINGS: Surgical changes and devices: None. Lungs and pleura: Right subpulmonic pleural effusion redemonstrated and persistent bibasilar airspace opacities, left greater than right. Mediastinum: Mediastinal contours appear normal. Heart size is normal. Bones and chest wall: No suspicious bony lesions. Overlying soft tissues appear unremarkable. IMPRESSION: 1. Possible loculated right pleural effusion redemonstrated and persistent basilar airspace opacities consistent with atelectasis versus aspiration or pneumonia. Continued radiographic surveillance to resolution is recommended. Dictated by: Rg Peterson [facility] Interpreted: Lan Bo MD on 01/27/2017 at 10:53 Approved by: Lan Bo M.D. on 01/27/2017 at 14:42 PROCEDURE: CT ABDOMEN AND PELVIS WITH CONTRAST ABDOMEN: Lung bases: There is a low density right pleural effusion. Focal consolidation is present at the left lung base. Solid organs: Liver and spleen are normal in size and enhancement. Multiple punctate gallstones are present within the gallbladder fundus. No gallbladder wall thickening or pericholecystic fluid. Biliary system is non dilated. Pancreas enhances normally. No adrenal nodules. Kidneys demonstrate normal size and enhancement, without hydronephrosis. Peritoneum and bowel: Bowel loops demonstrate normal wall thickness and caliber. The appendix is thin walled. No free fluid or air. Nodes and vessels: No retroperitoneal or mesenteric adenopathy by size criteria. Aorta and inferior vena cava are normal in size. There are scattered atheromatous calcifications throughout the aorta and iliac arteries bilaterally. Miscellaneous: No ventral hernias. PELVIS: Genitourinary: Bladder wall thickness is normal. Miscellaneous: No inguinal adenopathy. There is a small right fat containing inguinal hernia. Bones: No suspicious bony lesions. No vertebral body compression fractures. IMPRESSION: 1. No acute intra-abdominal findings. Normal appendix. 2. Small low density right pleural effusion. 3. Focal left basilar consolidation. Differential considerations include atelectasis, aspiration, infection. Short interval followup is recommended to ensure resolution. Dictated by: Aury Jordan M.D. on 01/26/2017 at 22:02 Approved by: Aury Jordan M.D. on 01/26/2017 at 22:06 PROCEDURE: CT ANGIO CHEST PULMONARY EMBOLISM FINDINGS: Image quality: Excellent. Pulmonary arteries: Pulmonary arteries are normal in size, and demonstrate no intraluminal filling defects to suggest central pulmonary embolism. Lungs and pleura: There is a small, low-density, loculated appearing right pleural effusion. Focal consolidation is present at the medial left lung base. Atelectasis is present at the right lung base. Mediastinum: Heart size is enlarged, without pericardial effusion. No mediastinal or hilar adenopathy. Thoracic aorta is normal in caliber and enhancement. Esophagus is normal in caliber, without hiatal hernia. Bones and chest wall: No suspicious bony lesions. Ribs and thoracic spine appear intact throughout. A low density nodule and a punctate calcification are present within the right thyroid lobe. The left thyroid lobe is unremarkable. No axillary or supraclavicular adenopathy. Abdomen: Visualized upper abdominal solid organs appear normal in the early arterial phase of enhancement. IMPRESSION: 1. No acute pulmonary embolus. 2. Loculated appearing, small low density right pleural effusion. 3. Focal left basilar consolidation suspicious for aspiration/infection. Short interval followup is recommended to ensure resolution of this finding and exclude underlying pulmonary pathology. 4. Right thyroid nodule. If further characterization is warranted, nonemergent thyroid ultrasound is recommended. Dictated by: Aury Jordan M.D. on 01/26/2017 at 22:12 Approved by: Aury Jordan M.D. on 01/26/2017 at 22:12 PROCEDURE: US ABDOMEN, LIMITED FINDINGS: Liver measures 13 cm in length and demonstrates increased echotexture. The gallbladder wall measures up to 3.6 mm in diameter. No pericholecystic fluid. Sludge and stones are present centrally. No sonographic Beltran's sign. The common bile duct measures 4.8 mm in diameter. It no intrahepatic biliary ductal dilatation. The pancreas is nonvisualized. IMPRESSION: 1. Limited study. 2. Cholelithiasis and gallbladder wall which is the upper limits of normal. Of note, there is no pericholecystic fluid or sonographic Beltran's sign. These findings are equivocal for acute cholecystitis. Please correlate clinically. Dictated by: Aury Jordan M.D. on 01/26/2017 at 19:51 Approved by: Aury Jordan M.D. on 01/26/2017 at 19:53 PROCEDURE: X-RAY ACUTE ABDOMINAL SERIES FINDINGS: Surgical changes and devices: None. Chest: There is a focal retrocardiac radiopacity at the left lung base. There is tenting of the right hemidiaphragm which may be secondary to volume loss from recent lobectomy (per history). Abdomen: Bowel gas pattern is normal. No suspicious calcifications. Visualized solid organ contours appear normal. Bones: No suspicious bony lesions. IMPRESSION: 1. Left retrocardiac radiopacity suspicious for atelectasis, aspiration, or infection. 2. Tenting of the right hemidiaphragm which may be postoperative in nature. No prior comparisons are available to determine the acuity of this finding. 3. No acute intra-abdominal findings. Dictated by: Aury Jordan M.D. on 01/26/2017 at 18:59 Approved by: Aury Jordan M.D. on 01/26/2017 at 19:03 Brief History Ms. Woodard is a pleasant 71-year-old female with a history of lung adenocarcinoma status post right partial pneumonectomy completed at [facility] by Dr Rock Linda on 01/16/2017, who presented to [facility] with a 2 day history of acute onset right-sided chest pain with associated shortness of breath and inability to ambulate secondary to pain. The right-sided pain waxes and wanes without any identifiable triggers, is not associated with movement or position, moderately relieved with home pain medications. Patient reports that the prescribed oxycodone was not alleviating the pain over the recent 24-36 hours. She also notes that she has been utilizing her albuterol more frequently over the recent 2 days, with use increasing to greater than 4 times a day, which is unusual for her. She was admitted for evaluation and treatment of suspected healthcare associated pneumonia in the setting of recent hospitalization and pulmonary interventions. In the ED, T 36.6, pulse 76, respiratory rate 18, blood pressure 125 or 54, 97% room air; initial labs revealed WBC 6.7 with 61% neutrophils, hemoglobin 11.5, hematocrit 35.7, platelets 345; sodium 137, potassium 4.4, creatinine 0.86, lactic acid 0.8 with repeat 0.4, pro calcitonin 0.06, lipase 92, LFTs within range, albumin 3.7; UA revealed negative nitrite, small leukocyte esterase, few bacteria; blood cultures and urine cultures were obtained; initial imaging included x-ray acute abdominal series which revealed left retrocardiac radiopacity suspicious for atelectasis, aspiration, or infection, with tenting of the right hemidiaphragm which was thought to be post operative change, no other acute intra-abdominal findings were noted; abdominal ultrasound was noted to be limited in study with cholelithiasis and gallbladder wall was found to be upper limits of normal without any pericholecystic fluid or sonographic Beltran sign; CTA completed did not reveal any acute pulmonary emboli, there was a loculated appearing small low-density right pleural effusion with focal left basilar consolidation suspicious for aspiration or infection; CT of the abdomen and pelvis with contrast did not reveal any acute intra-abdominal findings with a normal appendix, small low-density right pleural effusion was again noted, in addition to focal left basilar consolidation. Initial therapies included 1 L normal saline, cefepime 2 g, hydromorphone 0.5 mg IV push as needed for pain. The patient remained afebrile during this entire stay in her white blood cell count remained within normal limits, however her right-sided abdominal pain persisted and seemed to worsen. Because the patient had a positive Beltran sign it seemed that some of her pain could be coming from the gallbladder for which imaging showed cholelithiasis; however, it was noted that much of her pain seemed becoming from the incision site as well. General surgery was contacted to look at the patient for possible cholecystectomy/treatment of her cholelithiasis versus a surgical complication and felt that the fluid that was noted on the CT scan could possibly be secondary to an infectious process status post recent surgery. Our general surgeon here (Dr. Davidson) asked that we contact her surgeon Dr. Linda to find out if he wanted us to ship her back to [facility] or if he wanted us to treat her here. Dr. Linda was contacted and stated that we should transfer her back to [facility]. The patient also wanted to be transferred back to [facility] and so a transfer was then initiated. Of note the patient has a history of paroxysmal A. fib which was triggered after her recent surgery. The patient came in in sinus rhythm however she converted into A. fib yesterday 01/27/17 for 2-3 hours and then spontaneously converted back to sinus rhythm. Today the patient once again converted to atrial fibrillation however is currently rate controlled in the 70s and 80s. Hospital Course Ms. Woodard is a pleasant 71-year-old female with a history of lung adenocarcinoma status post right partial pneumonectomy completed at [facility] on 01/16/2017, who presented to [facility] with a 2 day history of acute onset right-sided chest pain with associated shortness of breath and inability to ambulate secondary to pain. She was admitted for evaluation and treatment of suspected healthcare associated pneumonia in the setting of recent hospitalization and pulmonary interventions. Suspected pneumonia, acute, present on admission, under evaluation - On admit: WBC 6.7; afebrile, PCT 0.06 - Initial imaging of CT, CXR described findings of left retrocardiac radiopacity , focal left basilar consolidation, loculated right pleural effusion - ED antibiotics: Cefepime 2 g - Patient reports allergy to penicillin, but has taken and tolerated cephalosporins in the past - Blood cultures obtained in ED: Negative 24 hours - Resp viral PCR, strep pneu Ur, Legionella Ur, MRSA swab: Were all negative - Continue to monitor; consideration of healthcare pneumonia secondary to recent hospitalization for pneumonectomy - Incentive spirometer ordered - We will continue with healthcare associated pneumonia with low risk MDR antibiotic regimen at this time: Ertapenem 1 g IV every 24 - Change antibiotics as results from pending laboratory results yield Right-sided chest pain, acute, present on admission, under evaluation infection versus cholelithiasis - Admit CT abdomen and pelvis with contrast: No acute intra-abdominal findings or etiology of abdominal pain - CTA on admission: No acute pulmonary emboli, but did reveal loculated appearing low-density right pleural effusion - Pain may also be secondary to postoperative healing; time of admission, port sites appeared healing without any sign of active infection - Dilaudid 1 mg IV as needed for pain; convert to effective oral dosing when pain is controlled -Surgery consulted (Dr. Davidson) - Physical therapy evaluation Lung cancer status post right partial pneumonectomy, present on admission, now considered to be chronic, presumed stable - Per reports, pneumonectomy completed at [facility] on 01/16/2017 - ED kindly contacted Dr. Rock Linda - Incentive spirometer - Albuterol scheduled 4 times a day while awake at patient's request Paroxysmal atrial fibrillation, chronic, not present on admission, monitor - Patient reports brief instance of atrial fibrillation postoperatively which she reports has resolved - Home medication metoprolol 12.5 mg 3 times a day - We will continue beta blockade at this time - Telemetry - Today the patient was reported to have converted back to A. fib however is currently rate controlled in the 70s and 80s Livedoid vasculopathy, chronic, presumably managed - Patient states symptoms well-controlled with application of Vaseline or Aquaphor - Okay for patient to apply liberally as needed Exam Vital Signs (Last) Date Time Temp Pulse Resp B/P Pulse Ox O2 Delivery O2 Flow Rate FiO2 01/28/17 14:08 36.9 64 18 102/57 93 Room Air Exam Physical Exam: GEN: Patient was awake, alert, responding appropriately to questions HEENT: Pupils equal round and reactive to light, extraocular eye muscles intact , Neck soft supple, trachea midline, nomocephalic/atraumatic CV: Irregular rate and rhythm, no murmurs auscultated Respiratory: CTAB, no wheezes, rales, rhonchi GI: +bowel sounds x4, soft, compressible, tender to palpation right upper quadrant, incisional site nonerythematous and nonedematous EXT: no clubbing, cyanosis, edema Neuro: Cranial nerves II-XII grossly intact Psych: mood and affect were appropriate Test 01/26/17 18:08 01/26/17 21:27 01/26/17 22:50 01/27/17 05:05 Hold Purple Top Tube Received (Received) Prothrombin Time 9.7sec (8.1-12.5) Prothromb Time International Ratio 0.91ratio Hold Blue Top Tube Received (Received) Magnesium Level 2.2mg/dL (1.6-2.6) Total Bilirubin 0.2mg/dL (0.0-1.2) Aspartate Amino Transf (AST/SGOT) 13U/L (0-50) Alanine Aminotransferase (ALT/SGPT) 14U/L (0-32) Alkaline Phosphatase 78U/L (25-165) Total Protein 6.8g/dL (6.4-8.4) Albumin 3.7g/dL (3.4-5.0) Lipase 92U/L (13-60) Hold Murray Top Tube Received (Received) Hold Botello Top Tube Received (Received) Urine Color Straw (YELLOW) Urine Appearance Clear (CLEAR,HAZY) Urine pH 5.0 (5.0-8.0) Urine Specific Ewing 1.005 (1.003-1.035) Urine Protein Negativemg/dL (NEG,TRACE) Urine Glucose (UA) Negativemg/dL (NEGATIVE) Urine Ketones Negativemg/dL (NEGATIVE) Urine Occult Blood Negative (NEGATIVE) Urine Nitrite Negative (NEGATIVE) Urine Bilirubin Negative (NEGATIVE) Urine Urobilinogen Normalmg/dL (NORMAL) Urine Leukocyte Esterase Small (NEGATIVE) Urine RBC 0-2/hpf (0-2) Urine WBC 0-5/hpf (0-5) Urine Epithelial Cells Few/hpf (NONE-MOD) Urine Crystals None seen (NONE SEEN) Urine Bacteria Few/hpf (NONE-FEW) Urine Hyaline Casts None/lpf (NONE) Urine Granular Casts None seen (NONE SEEN) Urine Waxy Casts None seen (NONE SEEN) Urine Red Blood Cell Casts None seen (NONE SEEN) Urine White Blood Cell Casts None seen (NONE SEEN) Urine Mucus None seen (None Seen) Urine Trichomonas None seen (NONE SEEN) Urine Yeast None (NONE SEEN) Urinalysis Comment None Urine Culture Reflexed Indicated Lactic Acid Level 0.4mmol/L (0.4-2.0) White Blood Count 7.6th/mm3 (3.8-10.1) Red Blood Count 3.73mil/mm3 (3.90-5.20) Hemoglobin 10.9g/dL (12.0-15.6) Hematocrit 34.3% (35.0-46.0) Mean Corpuscular Volume 92.0fL (81-100) Mean Corpuscular Hemoglobin 29.2pg (27.0-35.0) Mean Corpuscular Hemoglobin Concent 31.8% (32.0-37.0) Red Cell Distribution Width 13.3% (12.3-15.4) Platelet Count 314bil/L (150-400) Neutrophils (%) (Auto) 72.3% (40-74) Lymphocytes (%) (Auto) 18.2% (14-46) Monocytes (%) (Auto) 6.5% (4-12) Eosinophils (%) (Auto) 2.2% (0-5) Basophils (%) (Auto) 0.4% (0-3) Sodium Level 141mEq/L (134-144) Potassium Level 4.7mEq/L (3.5-5.2) Chloride Level 105mEq/L (97-108) Carbon Dioxide Level 24mmol/L (18-29) Blood Urea Nitrogen 11mg/dL (8-27) Creatinine 0.92mg/dL (0.57-1.00) Estimat Glomerular Filtration Rate 86mL/min (>59) Glucose Level 116mg/dL (60-99) Calcium Level 8.8mg/dL (8.5-10.1) Procalcitonin 0.06ng/mL (0.00-0.08) Test 01/27/17 06:38 Urine Legionella pneumophilia Ag Negative (Negative) Discharge Medications Discharge Medications Alendronate/Vitamin D3 (Alendronate/Vitamin D3) 1 Each Tablet 1 TAB PO WEEKLY ( Reported) SUNDAYS Docusate Sodium (Colace) 100 Mg Capsule 100 MG PO BID (Reported) Famotidine (Famotidine) 20 Mg Tablet 20 MG PO BIDWM (Reported) Metoprolol Tartrate (Metoprolol Tartrate) 25 Mg Tablet 12.5 MG PO TID (Reported ) Sennosides (Senna) 8.6 Mg Tablet 8.6 MG PO BID (Reported) As needed Acetaminophen (Acetaminophen) 500 Mg Tablet 500 MG PO Q3H PRN PRN For Pain ( Reported) Loperamide (Loperamide) 2 Mg Tablet 2 MG PO Q4H PRN PRN For Diarrhea or Loose Stool (Reported) Ondansetron (Ondansetron) 4 Mg Tablet 4 MG PO Q8H PRN PRN For Nausea/Vomiting ( Reported) Oxycodone (Roxicodone) 5 Mg Tablet 5 MG PO Q3H PRN PRN For Pain (Reported) Followup Plan Follow-up plan Patient is being transferred to [facility] for further medical and surgical management Discharge Diet: No restrictions Discharge Activity: No restrictions Time spent 60 minutes Gi Guo DO Jan 28, 2017 16:51
--- NOTE | 2017-01-28 17:20 | NUR ---
Social Work-discharge: Data:EMR reviewed. Pt is on day 2 of hospitalization for Pneumonia per H&P. SW update by conveyor line battery charger that pt is transferring to [place] today. No SW needs identified. All updated and agreeable to plan. Assessment:pt who would benefit from transfer. Plan:Pt to transfer to [facility] today. No SW needs identified. All updated and agreeable to plan. JOSE Arana
--- NOTE | 2017-01-28 17:51 | NUR ---
discharge/transfer report called to [phone]
== END 2017-01-28 17:59 | disposition short-term general hospital (02) | DRG 862 ==
LOC: SED 15:57 → MPC 23:56
PROVIDERS: ADMIT Internal Medicine; ATTEND Internal Medicine
DX: T81.4XXA Infection following a procedure, initial encounter (principal); J18.9 Pneumonia, unspecified organism; C34.11 Malignant neoplasm of upper lobe, right bronchus or lung; J91.8 Pleural effusion in other conditions classified elsewhere; L95.0 Livedoid vasculitis; B99.8 Other infectious disease; I48.0 Paroxysmal atrial fibrillation; Z87.891 Personal history of nicotine dependence; Y95 Nosocomial condition